=== PATIENT | female | born 1935 | race African-American/Black ===

== ENCOUNTER 2021-10-22 03:10 | Emergency (ER) | payer OTHER ==
[2021-10-22] MEDS ORDERED: Lisinopril 5 MG TAB ONE (06:27)
[2021-10-22] MEDS ORDERED: Acetaminophen 325 MG TAB ONE (06:27)
== END 2021-10-22 06:35 | disposition home or self-care (01) ==
LOC: NAV ERS 03:10
DX: S00.83XA Contusion of other part of head, initial encounter (principal); I10 Essential (primary) hypertension; M81.0 Age-related osteoporosis without current pathological fracture; H40.9 Unspecified glaucoma; W07.XXXA Fall from chair, initial encounter; Y92.001 Dining room of unspecified non-institutional (private) residence as the place of occurrence of the external cause
CPT/HCPCS: 70450; 72125